=== PATIENT | male | born 1945 | race Hispanic/Latino ===

== ENCOUNTER 2017-05-11 11:32 | Inpatient (IN) | payer MEDICARE ==
[~2017-05-11] VITALS: Ht 180.3 cm; Wt 73.2 kg
[~2017-05-11 11:32] MED LIST: BIOTIN1000 MCG PO; D3 ADULT1000 UNIT PO; FISH OIL1000 MG PO; KEFLEX500 MG OR; LORTAB 7.5 OR; MULTI VIT PO; MYRBETRIQ25 MG PO; VITAMIN B 12250 MCG PO; VITAMIN E400 UNIT PO; XANAX0.5 MG OR; ZINC50 M1 PO
[2017-05-11 12:10] LABS: HEMATOCRIT 42.4 % (39.0-50.0); HEMOGLOBIN 15.2 g/dl (14.0-18.0); IMMATURE GRANULOCYTES 0.3 % (0.0-1.0); MEAN CELL VOLUME 95.7 fL CALC (80.0-100.0); MEAN CORPUSCULAR HGB 34.3 pG CALC (26.0-32.0); MEAN CORPUSCULAR HGB CONC 35.8 g/L CALC (32.0-36.0); NEUT# 5.78 thou/uL (1.82-7.42); RED BLOOD COUNT 4.43 mill/uL (4.70-6.10); RED CELL DISTRI WIDTH 14.6 % (11.5-15.5)
[2017-05-11 12:51] LABS: ALKALINE PHOSPHATASE 80 u/l (38-126); ANION GAP 19 (6-22 (CALC)); BILIRUBIN, TOTAL 0.6 mg/dL (0.0-1.4); BUN 20 mg/dL (8-23); BUN/CREATININE RATIO 20 (12-20 (CALC)); CARBON DIOXIDE 20 mmol/l (22-30); CHLORIDE 109 mmol/l (95-108); GFR > 60 ML/MIN (>=60 (CALC)); GFR FOR AFR.AMER. > 60 ML/MIN (>=60 (CALC)); LIPASE 94 u/l (23-300); SGOT/AST 30 u/l (19-48); SGPT/ALT 43 u/l (11-66); SODIUM 144 mmol/l (137-146); TOTAL PROTEIN 7.4 g/dL (6.3-8.2)
[2017-05-11 13:35] LABS: URINE BILIRUBIN - DIPSTICK NEGATIVE (NEGATIVE); URINE BLOOD DIPSTICK LARGE (NEGATIVE); URINE COLOR YELLOW; URINE GLUCOSE - DIPSTICK NEGATIVE (NEGATIVE); URINE KETONE 15 mg/dL (NEGATIVE); URINE LEUK ESTERASE NEGATIVE (NEGATIVE); URINE NITRITE - DIPSTICK NEGATIVE (Negative); URINE PH 5.5 (4.5-8.0); URINE PROTEIN - DIPSTICK TRACE mg/dL (NEG-TRACE); URINE SPECIFIC GRAVITY >=1.030; URINE UROBILINOGEN - DIPSTICK 0.2 E.U./dL (0.2)
[2017-05-11 13:40] LABS: URINE CLARITY CLEAR
[2017-05-11 13:46] LABS: URINE WBC 0-2 WBC/hpf (0-5)
[2017-05-11] MEDS ORDERED: TRAZODONE50 MG PO (14:54)
[2017-05-11 15:37] VITALS: BP 163/95
[2017-05-11 20:00] VITALS: BP 132/83
[2017-05-12] VITALS (8 sets, daily range): BP systolic 130–145; BP diastolic 76–96
[2017-05-12 05:37] LABS: MEAN CELL VOLUME 96.6 fL CALC (80.0-100.0); MEAN CORPUSCULAR HGB 34.5 pG CALC (26.0-32.0); MEAN CORPUSCULAR HGB CONC 35.7 g/L CALC (32.0-36.0); RED BLOOD COUNT 3.83 mill/uL (4.70-6.10); RED CELL DISTRI WIDTH 14.5 % (11.5-15.5)
[2017-05-12 05:39] LABS: HEMOGLOBIN 13.2 g/dl (14.0-18.0)
[2017-05-12 05:43] LABS: ANION GAP 16 (6-22 (CALC)); BUN 19 mg/dL (8-23); BUN/CREATININE RATIO 16 (12-20 (CALC)); CARBON DIOXIDE 22 mmol/l (22-30); CHLORIDE 109 mmol/l (95-108); CREATININE 1.2 mg/dL (0.7-1.3); GFR 60 ML/MIN (>=60 (CALC)); GFR FOR AFR.AMER. > 60 ML/MIN (>=60 (CALC)); MAGNESIUM 1.9 mg/dL (1.6-2.3); POTASSIUM 4.3 mmol/l (3.5-5.1); SODIUM 142 mmol/l (137-146)
[2017-05-12] MEDS ORDERED: TAMSULOSIN0.4 MG PO (17:30)
[2017-05-12] MEDS ORDERED: BACTRIM DS1 TAB PO (17:30)
[2017-05-12] MEDS ORDERED: TRAMADOL HCL50 MG PO (17:30)
== END 2017-05-12 19:00 | disposition home or self-care (01) | DRG 694 ==
LOC: ED 11:32 → ED-I 14:13 → ED 15:01 → MS2 15:02
PROVIDERS: Family Medicine; Nurse Practitioner Family; ADMIT Internal Medicine; ATTEND Internal Medicine
PROC: 0T768DZ Dilation of Right Ureter with Intraluminal Device, Via Natural or Artificial Opening Endoscopic (ICD-10-PCS; principal; 2017-05-12)
PROC: BT1DYZZ Fluoroscopy of Right Kidney, Ureter and Bladder using Other Contrast (ICD-10-PCS; 2017-05-12)
DX: N13.2 Hydronephrosis with renal and ureteral calculous obstruction (principal); G47.00 Insomnia, unspecified; Z85.828 Personal history of other malignant neoplasm of skin; Z87.442 Personal history of urinary calculi; Z87.891 Personal history of nicotine dependence; Z90.81 Acquired absence of spleen; Z90.49 Acquired absence of other specified parts of digestive tract
CPT/HCPCS: Q9967; S0164

== ENCOUNTER 2017-06-02 05:52 | Day surgery (SDC) | payer MEDICARE ==
[~2017-06-02] VITALS: Ht 180.3 cm; Wt 70.3 kg
[~2017-06-02 05:52] MED LIST changes: +BACTRIM DS1 TAB PO; +TAMSULOSIN0.4 MG PO; +TRAMADOL HCL50 MG PO; +TRAZODONE50 MG PO
[2017-06-02 06:42] LABS: HEMATOCRIT 41.6 % (39.0-50.0); HEMOGLOBIN 14.7 g/dl (14.0-18.0); IMMATURE GRANULOCYTES 0.2 % (0.0-1.0); MEAN CELL VOLUME 95.4 fL CALC (80.0-100.0); MEAN CORPUSCULAR HGB 33.7 pG CALC (26.0-32.0); MEAN CORPUSCULAR HGB CONC 35.3 g/L CALC (32.0-36.0); NEUT# 2.41 thou/uL (1.82-7.42); RED BLOOD COUNT 4.36 mill/uL (4.70-6.10)
[2017-06-02 06:51] LABS: ANION GAP 17 (6-22 (CALC)); BUN 17 mg/dL (8-23); BUN/CREATININE RATIO 18 (12-20 (CALC)); CARBON DIOXIDE 25 mmol/l (22-30); CHLORIDE 106 mmol/l (95-108); CREATININE 0.9 mg/dL (0.7-1.3); GFR > 60 ML/MIN (>=60 (CALC)); GFR FOR AFR.AMER. > 60 ML/MIN (>=60 (CALC)); POTASSIUM 4.2 mmol/l (3.5-5.1); SODIUM 145 mmol/l (137-146)
[2017-06-02] MEDS ORDERED: NORCO1 TA2 PO (09:04)
[2017-06-02] MEDS ORDERED: PYRIDIUM200 MG PO (09:04)
[2017-06-02] MEDS ORDERED: OXYBUTYNIN5 M1 PO (09:04)
[2017-06-02] MEDS ORDERED: Levaquin PO (09:04)
[2017-06-02 14:22] VITALS: BP 126/78
== END 2017-06-02 11:30 | disposition home or self-care (01) ==
LOC: ORM 05:52
PROVIDERS: ATTEND Urology
PROC: 0TC68ZZ Extirpation of Matter from Right Ureter, Via Natural or Artificial Opening Endoscopic (ICD-10-PCS; principal; 2017-06-02)
PROC: 0T768DZ Dilation of Right Ureter with Intraluminal Device, Via Natural or Artificial Opening Endoscopic (ICD-10-PCS; 2017-06-02)
PROC: BT1D1ZZ Fluoroscopy of Right Kidney, Ureter and Bladder using Low Osmolar Contrast (ICD-10-PCS; 2017-06-02)
DX: N13.2 Hydronephrosis with renal and ureteral calculous obstruction (principal); Z87.442 Personal history of urinary calculi; Z90.81 Acquired absence of spleen; Z87.891 Personal history of nicotine dependence
CPT/HCPCS: J1956; Q9967

== ENCOUNTER 2018-01-30 09:38 | Emergency (ER) | payer MEDICARE ==
[~2018-01-30] VITALS: Ht 180.3 cm; Wt 59.1 kg
[~2018-01-30 09:38] MED LIST changes: +Levaquin PO; +NORCO1 TA2 PO; +OXYBUTYNIN5 M1 PO; +PYRIDIUM200 MG PO
[2018-01-30 10:15] LABS: HEMATOCRIT 43.5 % (39.0-50.0); HEMOGLOBIN 15.7 g/dl (14.0-18.0); IMMATURE GRANULOCYTES 0.2 % (0.0-5.0); MEAN CORPUSCULAR HGB 34.7 pG CALC (26.0-32.0); MEAN CORPUSCULAR HGB CONC 36.1 g/L CALC (32.0-36.0); NEUT# 2.99 thou/uL (1.82-7.42); RED BLOOD COUNT 4.53 mill/uL (4.70-6.10); RED CELL DISTRI WIDTH 15.1 % (11.5-15.5)
[2018-01-30 10:30] LABS: ANION GAP 15 (6-22 (CALC)); BUN 17 mg/dL (8-23); BUN/CREATININE RATIO 20 (12-20 (CALC)); CARBON DIOXIDE 24 mmol/l (22-30); CHLORIDE 108 mmol/l (95-108); CREATININE 0.9 mg/dL (0.7-1.3); GFR > 60 ML/MIN (>=60 (CALC)); GFR FOR AFR.AMER. > 60 ML/MIN (>=60 (CALC)); POTASSIUM 4.4 mmol/l (3.5-5.1); SODIUM 142 mmol/l (137-146)
[2018-01-30] MEDS ORDERED: MECLIZINE25 MG PO (10:34)
[2018-01-30 11:00] VITALS: BP 151/97
== END 2018-01-30 11:00 | disposition home or self-care (01) ==
LOC: ED 09:38
PROVIDERS: Family Medicine
DX: R42 Dizziness and giddiness (principal); J32.4 Chronic pansinusitis

== ENCOUNTER 2018-07-20 14:55 | Emergency (ER) | payer MEDICARE ==
[~2018-07-20] VITALS: Ht 180.3 cm; Wt 72.7 kg
[~2018-07-20 14:55] MED LIST changes: +MECLIZINE25 MG PO
[2018-07-20 16:08] LABS: HEMATOCRIT 41.3 % (39.0-50.0); HEMOGLOBIN 14.6 g/dl (14.0-18.0); IMMATURE GRANULOCYTES 0.2 % (0.0-5.0); MEAN CELL VOLUME 94.7 fL CALC (80.0-100.0); MEAN CORPUSCULAR HGB 33.5 pG CALC (26.0-32.0); MEAN CORPUSCULAR HGB CONC 35.4 g/L CALC (32.0-36.0); NEUT# 3.26 thou/uL (1.82-7.42); RED BLOOD COUNT 4.36 mill/uL (4.70-6.10); RED CELL DISTRI WIDTH 14.9 % (11.5-15.5)
[2018-07-20 16:25] LABS: ANION GAP 15 (6-22 (CALC)); BUN 16 mg/dL (8-23); BUN/CREATININE RATIO 17 (12-20 (CALC)); CARBON DIOXIDE 23 mmol/l (22-30); CHLORIDE 109 mmol/l (95-108); GFR > 60 ML/MIN (>=60 (CALC)); GFR FOR AFR.AMER. > 60 ML/MIN (>=60 (CALC)); POTASSIUM 4.3 mmol/l (3.5-5.1); SODIUM 143 mmol/l (137-146)
[2018-07-20 17:35] VITALS: BP 143/89
== END 2018-07-20 17:35 | disposition home or self-care (01) ==
LOC: ED 14:55
PROVIDERS: Family Medicine
DX: R79.1 Abnormal coagulation profile (principal); R20.0 Anesthesia of skin; R94.31 Abnormal electrocardiogram [ECG] [EKG]
CPT/HCPCS: Q9967

== ENCOUNTER 2023-10-12 19:52 | Emergency (ER) | payer MEDICARE ==
[~2023-10-12] VITALS: Ht 182.9 cm; Wt 68.0 kg
[~2023-10-12 19:52] MED LIST changes: +NABUMETONE750 MG PO; +ORPHENADRINE100 MG PO
[2023-10-12 20:01] VITALS: BP 117/75
[2023-10-12] MEDS ORDERED: ACETAMINOPHEN 500 MG TAB PO ONE (20:10)
[2023-10-12] MEDS ORDERED: ANXIETY MED (20:12)
[2023-10-12] MEDS ORDERED: FLUORESCEIN SODIUM 1 MG EA OD ONE (20:15)
[2023-10-12] MEDS ORDERED: FLUORESCEIN SODIUM 1 MG EA OS ONE (20:15)
[2023-10-12] MEDS ORDERED: Diph, Acellular Pertussis, Tet 0.5 ML/VIAL (Tdap) SDV IM ONE (20:25)
[2023-10-12] MEDS ORDERED: TETRACAINE HCL 0.5 %/4 ML SOL OS ONE (20:25)
[2023-10-12 22:51] VITALS: BP 124/87
== END 2023-10-12 22:52 | disposition home or self-care (01) ==
LOC: ED 19:52
PROC: 0HQ1XZZ Repair Face Skin, External Approach (ICD-10-PCS; principal; 2023-10-12)
DX: S01.81XA Laceration without foreign body of other part of head, initial encounter (principal); H11.31 Conjunctival hemorrhage, right eye; I10 Essential (primary) hypertension; F41.9 Anxiety disorder, unspecified; H91.90 Unspecified hearing loss, unspecified ear; Y04.0XXA Assault by unarmed brawl or fight, initial encounter; Y92.009 Unspecified place in unspecified non-institutional (private) residence as the place of occurrence of the external cause